=== PATIENT | male | born 1995 ===

== ENCOUNTER 2022-01-02 17:11 | Emergency (ER) | payer SELFPAY ==
[2022-01-02 17:34] VITALS: BP 121/67
[2022-01-02] MEDS ORDERED: NEOMY 3.5 MG/BACIT 400 UNITS/POLY B 5000 UNITS/GM OINT PACKET TP ONE (18:03)
[2022-01-02] MEDS ORDERED: traMADol 50 MG TAB PO ONE (18:03)
[2022-01-02] MEDS ORDERED: TETANUS,DIPH,PERTUSS(ACELL) VACCINE 0.5 ML SYRINGE IM ONE (18:03)
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
== END 2022-01-02 21:00 | disposition left against medical advice (07) ==
LOC: ED 17:11
DX: T23.201A Burn of second degree of right hand, unspecified site, initial encounter (principal); X08.8XXA Exposure to other specified smoke, fire and flames, initial encounter; Y93.89 Activity, other specified; Y92.89 Other specified places as the place of occurrence of the external cause; Y99.8 Other external cause status
CPT/HCPCS: 99281